=== PATIENT | male | born 1960 | race American Indian/Alaskan Native ===

== ENCOUNTER 2023-02-03 10:52 | Inpatient (IN) | payer OTHER ==
[2023-02-03] MEDS ORDERED: ASPIRIN 81 MG CHEWABLE TABLETS PO ONE (11:05)
[2023-02-03] MEDS ORDERED: ASPIRIN 325 MG TABLET ONE (11:18)
[2023-02-03 11:36] LABS: BASO % 0.6 % (0-2.0); EOS % 0.2 % (0-4.5); HEMATOCRIT 47.4 % (35.4-49); HEMOGLOBIN 15.6 GM/dL (11.7-16.9); MCH 28.3 pg (25.7-33.7); MCHC 32.8 g/dl (32.0-35.9); MEAN CELL VOLUME 86.1 fl (80-96); MEAN PLT VOLUME 6.9 fl (7.5-11.1); MONO % 7.3 % (3.8-10.2); NEUT % 68.9 % (42.8-82.8); PLATELET COUNT 265 10^3/uL (134-434); RDW 13.4 % (11.9-15.9); WHITE BLOOD COUNT 7.5 K/mm3 (4.0-10.0)
[2023-02-03 11:45] LABS: INR 1.02 (0.83-1.09); PROTHROMBIN TIME (PATIENT) 11.8 SEC (9.7-13.0)
[2023-02-03 11:48] LABS: ACTIVATED PTT 33.2 SECONDS (25.2-36.5)
[2023-02-03 12:00] LABS: POTASSIUM 3.8 mmol/L (3.5-5.1)
[2023-02-03 12:03] LABS: CALCIUM 9.7 mg/dL (8.5-10.1)
[2023-02-03 12:04] LABS: ALBUMIN 4.4 g/dl (3.4-5.0)
[2023-02-03 12:07] LABS: CREATININE 1.1 mg/dL (0.55-1.3); TOT PROT 7.6 g/dl (6.4-8.2)
[2023-02-03 12:08] LABS: BILIRUBIN,TOTAL 0.6 mg/dL (0.2-1)
[2023-02-03 15:15] LABS: N-TERMINAL BNP 56.6 pg/ml (5-125)
[2023-02-03 20:47] VITALS: BMI 24.5
[2023-02-03] MEDS: ATORVASTATIN CA 40 MG TABLET (FP) PO SCH (21:45)
[2023-02-04 08:18] LABS: BASO % 0.4 % (0-2.0); EOS % 0.6 % (0-4.5); HEMATOCRIT 44.8 % (35.4-49); HEMOGLOBIN 14.4 GM/dL (11.7-16.9); LYMPH % 31.6 % (8-40); MCH 27.9 pg (25.7-33.7); MCHC 32.2 g/dl (32.0-35.9); MEAN CELL VOLUME 86.7 fl (80-96); MEAN PLT VOLUME 7.3 fl (7.5-11.1); MONO % 7.1 % (3.8-10.2); NEUT % 60.3 % (42.8-82.8); PLATELET COUNT 245 10^3/uL (134-434); RBC 5.16 M/mm3 (4.00-5.60); RDW 13.5 % (11.9-15.9); WHITE BLOOD COUNT 6.7 K/mm3 (4.0-10.0)
[2023-02-04 08:41] LABS: POTASSIUM 4.3 mmol/L (3.5-5.1)
[2023-02-04 08:44] LABS: ALBUMIN 3.7 g/dl (3.4-5.0); BLOOD UREA NITROGEN 16.4 mg/dL (7-18)
[2023-02-04 08:46] LABS: CALCIUM 8.5 mg/dL (8.5-10.1); PHOSPHOROUS 2.8 mg/dL (2.5-4.9)
[2023-02-04 08:48] LABS: BILIRUBIN,TOTAL 1.2 mg/dL (0.2-1); TOT PROT 6.5 g/dl (6.4-8.2)
[2023-02-04] MEDS: ASPIRIN 81 MG CHEWABLE TABLETS PO SCH (13:22)
[2023-02-04] MEDS: VALSARTAN 160 MG TABLET PO SCH (13:22)
[2023-02-04] MEDS: ATORVASTATIN CA 40 MG TABLET (FP) PO SCH (21:28)
[2023-02-05] MEDS: VALSARTAN 160 MG TABLET PO SCH (10:15)
[2023-02-05] MEDS: ASPIRIN 81 MG CHEWABLE TABLETS PO SCH (10:15)
[2023-02-05 12:36] VITALS: BP 153/73; PULSE 86; RESP 24; TEMP 98.4
== END 2023-02-05 13:12 | disposition home or self-care (01) | DRG 198 ==
LOC: JER 10:52 → JERBED 12:47 → OBSVTOIN 13:27 → J4W 18:58
PROVIDERS: ADMIT Internal Medicine; ATTEND Internal Medicine
DX: I24.89 Other forms of acute ischemic heart disease (principal); I45.10 Unspecified right bundle-branch block; I10 Essential (primary) hypertension; E78.5 Hyperlipidemia, unspecified
CPT/HCPCS: 0241U-QW; 36415; 71045-TC-FY; 78452-TC; 80053; 80061; 83036; 83735; 83880; 84100; 84443; 84484; 85025; 85610; 85730; 86850; 86900; 86901; 93005; 93010; 93017; 93306-TC; 99285-25; A9502; G0378